=== PATIENT | male | born 1985 | race Caucasian/White ===

== ENCOUNTER 2024-07-05 18:43 | Inpatient (IN) | payer MEDICARE, OTHER, SELFPAY ==
[2024-07-05] VITALS (18 sets, daily range): BP systolic 110–151; BP diastolic 66–99; RESP 15–19
--- NOTE | 2024-07-05 17:04 | ED.GENMED ---
History of Present Illness
General
Chief Complaint: Overdose Unintentional
Source: patient and ambulance crew
Exam Limitations: none
Time Seen by Provider: 07/05/24 17:03
Nursing documentation reviewed up to this point in time: agreed with
History of Present Illness
History of Present Illness:
39-year-old male presents to the emergency department via EMS after heroin overdose. He was given Narcan via EMS. He used 1 bag of heroin, snorted it. He was given 2 mg of Narcan at the house by significant other, and then received 2 mg of Narcan
via EMS.
Past History
Past History
ED Past Medical History: Other (Heroin abuse)
ED Past Surgical History: Other
Social History
Tobacco: Smoker
Alcohol: Other
Drug: Narcotics and Other
Personal: Other
Living: other
Employment: Other
Family History
Family History: Other
Review of Systems
Review of Systems
Allergies reviewed?: Yes
All Other Systems: Not applicable
Constitutional: Reports no symptoms
EENT: Reports no symptoms
Respiratory: Reports trouble breathing
Cardiac: Reports no symptoms
ABD/GI: Reports no symptoms
: Reports no symptoms
Musculoskeletal: Reports no symptoms
Skin: Reports no symptoms
Neurological: Reports no symptoms
Endocrine: Reports no symptoms
Hematologic/Lymphatic: Reports no symptoms
Psychiatric: Reports no symptoms
Phy Exam
Physical Exam
Physical Exam:
Physical Exam
General: Drowsy, but arousable, but then arouses
Neck: supple. no meningeal signs. normal posterior pharynx
Heart: s1/s2 regular rate and rhythm, no murmur. equal radial
pulses.
HEENT: Pupils equal round reactive to light, EOMI
Lungs: no acute respiratory distress. clear bilaterally
Abdomen: normal bowel sounds. not tender. no CVAT
Neuro: Arousable. no focal neurological deficits cranial nerves II through XII intact
Skin: no rash
Psychiatric: well kept. interactive and cooperative
Extremities: no edema. no calf tenderness. negative homans. good distal pulses
Course
Orders/Labs/Results
Orders:
Orders
07/05/24 Dinner
NPO
Allow oral meds: Yes
Allow clear liquids: No
07/05/24 17:00
Portable Chest Xray [CR Chest Portable - 1 View] Urgent
Comment:
Reason For Exam: overdose, low SpO2
Reason Study Needs to be Portable: Patient Unstable
07/05/24 17:03
Restraints - Non Violent As Directed
Justification-Patient:: 2-Protective Intervention
Restraint Type-: Soft Limb-L&R Wrist/4rail
Apply From (date): 07/05/24
Apply from (time): 17:03
Remove (date): 07/06/24
Remove (time): 23:59
07/05/24 17:07
Naloxone [Narcan] 2 mg IV NOW STA
07/05/24 17:09
Complete Blood Count/With Diff Urgent
Comprehensive Metabolic Panel Urgent
07/05/24 17:51
Naloxone [Narcan] 2 mg IV NOW STA
07/05/24 18:00
Naloxone [Narcan] See Protocol IV [id number] PRN
Naloxone [Narcan] 2 mg 0.9% Sodium Chloride 500 ml [Nss] 500 ml IV PER PROTOCOL
Dose for Titration in mg/hr:: 0.25
Titrate to keep:: Resp rate > 9
Frequency of titrations (minutes):: every 10 minute
Increase dose if:: Resp rate </=9 or ETCO2 > 55 mmHg or PaCO2 > 55 mmHg
Increase dose by:: 25% of current dose. (New Dose = current dose x
1.25)
If increased new dose < 0.2 mg/hr, bolus with (mg):: 0.08
If increased new dose 0.2 - 0.39 mg/hr, bolus with: 0.1
(mg)::
If increased new dose 0.4 - 0.59 mg/hr, bolus with: 0.2
(mg)::
If increased new dose 0.6 - 0.79 mg/hr, bolus with: 0.3
(mg)::
If increased new dose >/= 0.8 mg/hr, bolus with (mg):: 0.4
Decrease dose if:: respiratory rate > 10 and COWS 5-24
Decrease dose by:: 25% of current dose. (New Dose = current dose x
0.75)
Stop infusion if:: respiratory rate >/= 10 and COWS >/= 25
Restart infusion:: If resp rate </= 9, restart at 50% of prior infusion
dose
Maximum dose in mg/hr:: 6.25
Begin to taper infusion when:: patient remains at goal for 2 hours
Taper by:: 25% of current dose. (New Dose = current dose x
0.75)
Frequency of taper (minutes) if patient maintains: every 60 minutes
goal::
Turn infusion off when:: dose < 0.04 mg/hr
Capnography/ETCO2 As Directed
Pulse Ox/cont/shift [RESP] Routine
Quantity: 1
Special Instructions: continuous pulse oximetry with audible alarm set at 92%
07/05/24 18:09
Admit/Transfer Patient As Directed
Co-Sign Provider:
Level of Care: Inpatient admission
Assign to:: ICU
Physician / Group: Ada
Diagnosis: opioid overdose
Reason for Hospitalization: opioid overdose
Expected length of stay greater than two midnights?: Yes
ELOS- Estimated Length of Stay in days: 3
I certify the patient meets the requirements for IP care: Yes
PRN Pain Medication Management As Directed
May give lesser potent ordered pain med per pt: Yes
preference::
Protocol:: Medication orders for pain may be administered in a
manner that supports deferring to patient preference
when the pt is:
- Requesting an ordered lesser potent pain medication.
Least to most potent pain medications are defined
as: acetaminophen < NSAID < tramadol < opioids
(morphine, oxycodone, hydromorphone).
- Requesting a lesser dose of the same medication IF
ORDERED.
- Requesting a less intrusive route of administration
if both routes are prescribed by the provider (PO <
IV).
07/05/24 18:19
Code Status As Directed
Resuscitation Status: Full Code
07/05/24 19:32
Fentanyl, Urine Stat
Urine Drug Abuse Screen Stat
Date Specimen was Collected: 07/05/24
Time Specimen was Collected: 18:28
07/05/24 19:45
Bisacodyl [Dulcolax] 10 mg RECTAL [id number] PRN
Dextrose 5%/0.45%Sodchl 1000ML [D5/0.45%NaCl] 1,000 ml IV 100 mls/hr
Docusate W/Senna [Senokot-S] 1 tablet PO BIDPRN PRN
Polyethylene Glycol Powder [Miralax] 17 grams PO DAILYPRN PRN
07/05/24 19:45
Activity As Directed
Activity Level: With Assistance
Capnography/ETCO2 As Directed
Pneumatic Compression Sleeves As Directed
Type: Knee high
Vital Signs As Directed
Frequency: Per unit guidelines
DX Deep Vein Thrombosis Video Routine
07/06/24 06:00
Basic Metabolic Panel IN AM
Complete Blood Count/No Diff IN AM
07/06/24 18:00
Enoxaparin Sodium [Lovenox] 40 mg SC QPM
Abnormal Lab Results
07/05/24
17:09
WBC 11.4 H 10^3/uL
(4.8-10.8)
Abs Immat Gran (auto) 0.1 H 10^3/uL
(0-0.05)
Absolute Neuts (auto) 8.6 H 10^3/uL
(1.4-6.5)
Neutrophils % 75.4 H %
(42.2-75.2)
Lymphocytes % 17.8 L %
(20.5-51.1)
Chloride 115 H mmol/L
(98-107)
Glucose 127 H mg/dl
(70-99)
07/05/24 17:09
07/05/24 17:09
Vital Signs
Initial and Last Documented VS:
Initial Vital Signs
BP
148/95
07/05/24 16:54
Last Documented Vital Signs
Temp Pulse Resp BP Pulse Ox
97.9 F 59 17 110/66 97
07/05/24 20:07 07/05/24 22:15 07/05/24 22:15 07/05/24 22:00 07/05/24 22:15
MDM/Problems Addressed
Differential Diagnosis Includes:
Respiratory failure, opiate overdose
MDM/Problems Addressed:
39-year-old male with opiate overdose, mild improved with Narcan. Stable on 3 L nasal cannula. Admit to ICU for further treatment and stabilization.
*Radiology
Radiology exam reviewed: preliminary read by ED provider (Chest x-ray no acute finding)
*Pulse Oximetry
Patient hypoxic: yes
*[employer] Interpretation
Rate: normal
Interpretation: normal
Heart Rate: 62
Rhythm: sinus
*Critical Care Note
Total Time (30-74mins, 75-104mins- exclusive of procedures): 45
comment:
Critical care statement: A total of 45 minutes of critical care time was provided for this patient. This includes management of unstable vital signs, evaluation of the patient at bedside, reviewing the patient's pertinent medical records, discussion
with consultants, review of old EKGs and review of pertinent medical records. This time with separate from time utilized to perform the aforementioned documented procedures
Patient Management
Social determinants of health affecting care: Living situation
Discussion with other providers: Hospitalist
Escalation/DeEscalation of care consider admission/obs:
Admit indicated
ED Attending Note
-
Portions of this chart may have been created with voice recognition software.� Occasional wrong word or��sound alike� substitutions may have occurred due to the inherent limitations of voice recognition software.
Discharge Plan
Departure
Patient Disposition: Admit
Date of Disposition: 07/05/24
Time of Disposition: 17:57
Admit to: ICU
Presentation/result/management discussed w/ accepting MD/DO: Hospitalist
Patient with high blood pressure during this ER visit?: Yes
Condition: Serious
Discharge Problem:
Overdose opiate, Acute respiratory insufficiency
Interventions
Interventions:
*Risk Screen - Suicide Last Done: 07/05/24 16:55
*General Assessment Last Done: 07/05/24 16:55
*Neglect/Abuse Screening Last Done: 07/05/24 16:55
*ED- Fall Risk Assessment Last Done: 07/05/24 16:55
*ED COVID-19 Vaccine History Last Done: 07/05/24 19:54
*Nursing Disposition Last Done: 07/05/24 19:54
ED- Cardiac Assessment Last Done: 07/05/24 17:23
ED- Neurological Assessment Last Done: 07/05/24 17:23
ED-Psychological Assessment Last Done: 07/05/24 18:08
ED- Pulmonary Assessment Last Done: 07/05/24 17:23
Discharge Date and Time
Discharge Date/Time: 07/05/24 19:55
[2024-07-05] MEDS: NARCAN 2 MG IV ×2 (17:10→17:56)
[2024-07-05 17:19] LABS: % Basophils 0.4 % (0-2); % Eosinophils 0.5 % (0-6); % Immature Granulocytes 0.5 % (0-0.5); % Lymphocytes 17.8 % (20.5-51.1); % Monocytes 5.4 % (1.7-9.3); % Neutrophils 75.4 % (42.2-75.2); Absolute Basophils 0.1 10^3/uL (0-0.2); Absolute Eosinophils 0.1 10^3/uL (0-0.7); Absolute Immature Granulocytes 0.1 10^3/uL (0-0.05); Absolute Monocytes 0.6 10^3/uL (0.1-0.6); Absolute Neutrophils 8.6 10^3/uL (1.4-6.5); Hemoglobin 14.8 g/dL (13.0-18.0); Mean Corp Hgb Conc. 35.2 g/dL (33.0-37.0); Mean Corpuscular Hgb 29.7 pg (27.0-31.0); Mean Corpuscular Volume 84.2 fL (80.0-94.0); Mean Platelet Volume 8.6 fL (7.4-10.4); Nucleated Red Blood Cells % 0 % (-); Platelet Count 274 10^3/uL (130-400); Red Blood Cell Count 4.99 10^6/uL (4.70-6.10); Red Cell Dist. Width 12.2 % (11.5-14.5); White Blood Cell Count 11.4 10^3/uL (4.8-10.8)
[2024-07-05 17:31] LABS: ALT (SGPT) 25 U/L (0-50); AST (SGOT) 21 U/L (17-59); Alkaline Phosphatase 75 U/L (38-126); Blood Urea Nitrogen 18 mg/dl (9-20); Carbon Dioxide 22 mmol/L (22-30); Chloride 115 mmol/L (98-107); Glucose 127 mg/dl (70-99); Potassium 4.4 mmol/L (3.5-5.1); Sodium 145 mmol/L (135-145); Total Bilirubin 0.8 mg/dl (0.2-1.3); Total Protein 6.9 g/dl (6.3-8.2); eGFR > 60.00
--- NOTE | 2024-07-05 17:54 | PHANOTE ---
Addendum entered by Viral Cedillo 07/05/24 18:43:
Called Significant Other x2 times, picked up second time. She was able to confirm most medications, but did not know gabapentin dosing/frequency.
Original Note:
med rec tech(07/05/24)-Patient unable to answer questions, no records in [facility]. Created med list through [facility] information, but unable to confirm the medication list.
--- NOTE | 2024-07-05 18:25 | HPS.HSE ---
Family Physician
-
Family Physician: INTERVIEWE UNKNOWN - PT NOT
Chief Complaint
-
Fentanyl overdose
History of Present Illness
39-year-old male with a past medical history of:
Bipolar disorder
ADHD
Tobacco abuse disorder
Alcohol abuse disorder
Opioid abuse disorder
Medical marijuana use
Who presents with an opioid overdose. Patient currently is unresponsive. History is obtained from discussion with the ER as well as the patient's fianc�. The patient used fentanyl at home which she obtained from the street. EMS came to take him
to the hospital but initially refused. He then apparently used fentanyl again. EMS came again and brought him to the hospital. He received Narcan by his fianc�e as well as in the ER. Patient's fianc� reports that recently he has been drinking
about a 12 pack of beer daily
Medical History
Past Medical History
Past Medical History: Reports Other (Bipolar disorder ADHD Tobacco abuse disorder Alcohol abuse disorder Opioid abuse disorder Medical marijuana use)
Past Surgical History: Reports Other (N/A)
Social History
Tobacco: Smoker
Alcohol: Binge drinker
Drug: Narcotics
Family History
Family History: Not pertinent
Allergies / Home Medications
Allergies reflects when Allergies were last updated in [employer].
Home Medications with original date entered in [employer]
Allergy/Medication List:
Allergies
Allergy/AdvReac Type Severity Reaction Status Date / Time
No Known Allergies Allergy Verified 07/05/24 17:18
Home Medications
aripiprazole 15 mg tablet 15 mg PO DAILY 07/05/24
dextroamphetamine-amphetamine ER 20 mg 24hr capsule,extend release 20 mg PO DAILY 07/05/24
gabapentin 800 mg tablet 800 mg PO TID 07/05/24
lamotrigine 200 mg tablet 200 mg PO DAILY 07/05/24
Review of Systems
-
Unable to obtain full review of systems at this time due to: Acuity
A 12 point ROS was completed and negative except as noted: No
Physical Exam
Vital Signs
Vital Signs
Pulse Resp BP Pulse Ox
63 19 139/89 97
07/05/24 18:15 07/05/24 18:15 07/05/24 18:00 07/05/24 18:15
Physical Exam
General: Other (.)
Laboratory Results
-
07/05/24 17:09
07/05/24 17:09
Laboratory Results
Total Bilirubin 0.8 mg/dl (0.2-1.3) 07/05/24 17:09
AST 21 U/L (17-59) 07/05/24 17:09
ALT 25 U/L (0-50) 07/05/24 17:09
Alkaline Phosphatase 75 U/L (38-126) 07/05/24 17:09
Impression/Plan
-
Gen: NAD, NCAT
Eyes: pinpoint pupils, no scleral icterus.
Neck: supple.
CV: RRR, +S1/S2, no m/r/g.
Resp: CTAB, no rales, wheezes, or rhonchi.
Abd: +BS, soft, NT, ND
Skin: No rashes.
Neuro: Unresponsive to sternal rub
Psych: calm
Acute metabolic encephalopathy due to opioid abuse:
-Pt given Narcan at home and in ER
-given 2mg IV additional narcan ordered by myself
-start Narcan gtt at 0.25mg/hr
-currently protecting airway
-follow EtCO2
Alcohol abuse disorder:
-as per pt's fiance pt has been drinking 12 pack of beer daily for the last few days
-MSAS protocol (thiamine/folate/PRN ativan)
-may need phenobarb or precedex gtt
Other problems:
Tobacco abuse disorder
Medical marijuana use
ADHD
Bipolar d/o
FULL/Lovenox
Total critical care time spent = 47 min
[2024-07-05] MEDS: NARCAN 502 MG IV (18:43)
[2024-07-05 19:50] LABS: Amphetamines Negative (Negative); Barbiturates Negative (Negative); Benzodiazepines Positive (Negative); Buprenorphine Negative (Negative); Cocaine Negative (Negative); Marijuana Positive (Negative); Methadone Negative (Negative); Methamphetamines Negative (Negative); Opiates Negative (Negative); Phencyclidine Negative (Negative); Tricyclic Antidepressants Negative (Negative)
--- NOTE | 2024-07-05 20:00 | PTCARENOTE ---
Received patient awake, oriented to self and time, asking if he was in [facility]. Following commands, denying pain. MSAS 0, COWS 6, titrating narcan drip per protocol. Sinus nas/normal sinus 50s-70s, BP stable, normothermic. Palpable
pedal and radial pulses b/l. 97% on 3 liters, lung sounds clear. Urinal to void. LAC 18 patent, WNL. Right hand 22 PIV inserted, IVF ongoing. Patient intermittently drowsy and lethargic. Hourly rounding and patient safety checks ongoing.
[2024-07-05 20:33] LABS: Fentanyl, Urine Negative (Negative)
[2024-07-05] MEDS: D5/0.45%NACL 1000 IV (20:52)
[2024-07-05 21:00] LABS: INR 0.95; PT 13.2 Sec (11.4-14.6)
[2024-07-05 21:01] LABS: APTT 29.5 Sec (23.4-35.0)
[2024-07-05 21:17] LABS: GGTP 39 U/L (15-73); Magnesium 2.3 mg/dl (1.6-2.3); Phosphorus 3.7 mg/dl (2.5-4.5)
[2024-07-05 21:23] LABS: B-Hydroxybutyrate 0.08 mmol/L (0.02-0.27)
[2024-07-05] MEDS: THIAMINE INJECTION 200 MG IV (23:23)
[2024-07-06] VITALS (14 sets, daily range): BP systolic 119–157; BP diastolic 68–102; RESP 15–19
--- NOTE | 2024-07-06 00:12 | PTCARENOTE ---
Patient assessment unchanged from previous, narcan titration ongoing. Hourly rounding and patient safety checks ongoing.
--- NOTE | 2024-07-06 04:26 | PTCARENOTE ---
Patient more awake, interactive, AAOx3. Patient accidentally removed one IV, refuses to allow RN to place another one. Otherwise patient assessment unchanged from previous, call manzano within reach.
[2024-07-06 04:36] LABS: Hematocrit 38.7 % (39.0-52.0); Hemoglobin 13.5 g/dL (13.0-18.0); Mean Corp Hgb Conc. 34.9 g/dL (33.0-37.0); Mean Corpuscular Hgb 29.7 pg (27.0-31.0); Mean Corpuscular Volume 85.1 fL (80.0-94.0); Mean Platelet Volume 8.7 fL (7.4-10.4); Platelet Count 249 10^3/uL (130-400); Red Blood Cell Count 4.55 10^6/uL (4.70-6.10); Red Cell Dist. Width 12.3 % (11.5-14.5); White Blood Cell Count 10.5 10^3/uL (4.8-10.8)
[2024-07-06 04:56] LABS: Blood Urea Nitrogen 15 mg/dl (9-20); Carbon Dioxide 23 mmol/L (22-30); Chloride 114 mmol/L (98-107); Glucose 96 mg/dl (70-99); Potassium 4.3 mmol/L (3.5-5.1); Sodium 142 mmol/L (135-145); eGFR > 60.00
[2024-07-06 07:13] LABS: Urine Albumin Negative (Neg - Trace); Urine Bilirubin Negative (Negative); Urine Character Clear (Clear); Urine Color Yellow; Urine Glucose Negative (Negative); Urine Ketone Negative (Negative); Urine Leukocyte Negative (Negative); Urine Nitrite Negative (Negative); Urine Occult Blood Negative (Negative); Urine Specific Gravity 1.025 (<1.030); Urine Urobilinogen Negative (Neg - 1+)
[2024-07-06] MEDS: THIAMINE INJECTION 200 MG IV (08:00)
[2024-07-06] MEDS: FOLVITE 1 MG PO (08:01)
[2024-07-06] MEDS: D5/0.45%NACL 1000 IV (08:01)
--- NOTE | 2024-07-06 08:03 | PTCARENOTE ---
received in AM, awake alert and oriented, stated 'I want to get out of here'. patient was informed regarding hospital policy on leaving AMA. stated he wants to be discharged on a regular basis. accepted all due medications. eating breakfast at
present. denies pain/discomfort.
--- NOTE | 2024-07-06 08:12 | CON.INTV ---
Addendum entered and electronically signed by Betsy Garcia MD 07/06/24 12:35:
Please note that patient left AMA shortly after rounds
Addendum entered and electronically signed by Betsy Garcia MD 07/06/24 12:35:
Patient seen and examined independently by myself. Resident note reviewed below. Case discussed on rounds.
Patient is awake and alert, conversing. He admits to fentanyl use. He states he was clean for 5 years, in remission. 'My bad' 'I know what I did'. When asked who facilitated, he did not answer. 'It was my fault'
Patient denies chest pain, shortness of breath, nausea, abdominal pain. Denies any falls. Denies any diarrhea
He denies alcohol use, admits to smoking marijuana on a daily basis, does not take any illicit medications, benzodiazepines. He snorts his fentanyl
Family history unremarkable for lung disease, blood clots
Patient lives at home with his , has 2 birds
He is currently unemployed
He denies any allergies
Review of systems otherwise negative
Physical exam
Vitals are stable, heart rate 40s to 50s, blood pressure 140s/90s, 95% on room air, respiratory rate 19, conversant
Chest exam is clear, no wheeze/crackles/rhonchi
Cardiac exam regular rate rhythm no murmurs rubs gallops abdominal exam soft nontender nondistended extremities no clubbing cyanosis or edema. Multiple tattoos
Data reviewed
Chest x-ray with cardiomegaly, questionable interstitial changes
Talk screen positive for benzodiazepine/marijuana, otherwise normal liver function, creatinine, white count
A/P
Patient appears to be back to his baseline
He was on a Narcan drip, now discontinued
To me patient denies any alcohol use although records suggest 12 beers a day
Moving forward
Continue with supportive care
His mild interstitial changes are noted but his chest exam is clear
Unclear if this was a expiratory film
He also snorts fentanyl therefore is at risk for lung injury process
Recommended abstinence from snorting drugs. Patient denies alcohol use
Continue with thiamine/folate, MSAS
Bradycardia noted but patient is without symptoms.
Will obtain EKG
Further workup per primary service
Reviewed with critical care nursing, respiratory care, pharmacy
Reviewed with primary service
Will follow-up
Original Note:
Consultation
Consultation Request
Date/Time Consultation Requested: 07/05/24 19:45
Date/Time Consultation Performed: 07/06/24 08:30
Requesting Provider: Marko Caballero MD
Performing Provider: Mau Stoll MD ; Betsy Garcia MD
Reason for Consultation: icu mgmt
Medical History
-
Chief Complaint: Drug overdose
History of Present Illness:
39-year-old male with known past medical history of bipolar, ADHD, alcohol abuse disorder, opioid abuse disorder, use of medical marijuana, smoking who was presented unresponsive initially in the ED with suspected opioid overdose. Additionally
patient's parents reports that recently he has been drinking around 12 packs of beer every day.
In the ER urine tox showed + benzo and marijuana. He received Narcan at home and as well as in the ER later started on Narcan gtt.
He was also started on MSAS protocol.
Pmhx: Drug abuse, medical marijuana, alcohol abuse disorder, bipolar, ADHD
PShx: None
Past Medical History
Past Medical History: Other (As above)
Past Surgical History: Other (As above)
Social History
Tobacco: Smoker
Alcohol: Binge Drinker
Drug: Marijuana, Narcotics and IVDA
Family History
Family History: Unable to Obtain
Allergies / Home Medications
Allergies
Allergy/AdvReac Type Severity Reaction Status Date / Time
No Known Allergies Allergy Verified 07/05/24 17:18
Home Medications
�Medication �Instructions �Recorded �Confirmed �Last Taken �Type
aripiprazole 15 mg tablet 15 mg PO DAILY 07/05/24 07/05/24 Unknown History
dextroamphetamine-amphetamine ER 20 mg PO DAILY 07/05/24 07/05/24 Unknown History
20 mg 24hr capsule,extend release
gabapentin 800 mg tablet 800 mg PO TID 07/05/24 Unknown History
lamotrigine 200 mg tablet 200 mg PO DAILY 07/05/24 07/05/24 Unknown History
Review of Systems
-
History Source: Patient
All other systems: Negative unless noted
Vitals / Labs / Diagnostic Testing
Vital Signs
Temp Pulse Resp BP Pulse Ox
98.1 F 65 14 147/100 100
07/06/24 03:20 07/06/24 04:15 07/06/24 04:15 07/06/24 04:00 07/06/24 04:15
Lab Data
07/06/24 04:07
07/06/24 04:07
Laboratory Results
07/05/24
20:42
PT 13.2
INR 0.95
APTT 29.5
Diagnostic Testing:
Physical Exam
-
HEENT: Normocephalic and Moist Mucous Membranes
Cardiovascular: S1/S2 and Regular Rhythm
Respiratory: Clear and Non-Labored Respirations
GI: Soft, Non Distended and Non Tender
Neurology: Awake, Alert and Oriented
Skin: Warm and Dry
General: Comfortable
Assessment
-
39-year-old male presented initially in the OR for suspected opiate overdose.
# Drug overdose
#Acute metabolic encephalopathy secondary to opioid abuse
#Intermittent bradycardia
#Alcohol abuse disorder
#Medical marijuana use
#ADHD
#Bipolar disorder
Plan:
Patient is currently awake and alert and no longer encephalopathic.
Narcan gtt. is off as of 0 400 today.
Even though the family/fianc� reported use of fentanyl the urine tox was positive for benzos.
Currently no signs of withdrawal
EKG showed sinus bradycardia no ST or T wave changes
Echo pending
Patient on [facility] protocol for alcohol abuse disorder
Consult [facility]
Okay to downgrade to telemetry
DVT prophylaxis Lovenox
Data Reviewed
-
EKG: Report reviewed by me
Radiology: Report reviewed by me
Labs: Labs reviewed by me, Discussed with Physician and Discussed with Patient
--- NOTE | 2024-07-06 08:19 | W.PN.HOSP.TC ---
Today's Communication/Plan
-
see plan
Assessment / Plan
Assessment / Plan
Gen: NAD, NCAT, awake and alert x 3
Eyes: pinpoint pupils, no scleral icterus.
Neck: supple.
CV: nas, RRR, +S1/S2, no m/r/g.
Resp: CTAB, no rales, wheezes, or rhonchi.
Abd: +BS, soft, NT, ND
Skin: No rashes.
Neuro: CN2-12 intact, nonfocal
Psych: excited
Acute metabolic encephalopathy due to opioid abuse:
-Patient and patient's fianc� report that he took fentanyl. Interestingly urine drug screen was negative for fentanyl but positive for benzodiazepines.
-Pt given Narcan at home and in ER and then started on a narcan gtt which was stopped around 0400
-not awake and alert, no longer encephalopathic
Intermittent bradycardia:
-Sinus bradycardia on the monitor
-ECG 07/05/24 NSR with sinus arrhythmia, normal axis and intervals, no acute ST or T wave abnormalities
-check echo
Alcohol abuse disorder:
-as per pt's fiance pt had been drinking 12 packs of beer daily for the last few days [employer]
-MSAS protocol (thiamine/folate/PRN ativan)
Other problems:
Tobacco abuse disorder
Medical marijuana use
ADHD
Bipolar d/o
FULL/Lovenox
Downgrade to tele. Monitor for 24 hours.
Anticipated Discharge: Within 24 hours
Subjective/Interval History
-
Date of Service: July 06, 2024
Objective Data
-
Labs:
Laboratory Results
07/05/24 07/06/24
20:42 04:07
WBC 10.5
Hgb 13.5
Hct 38.7 L
Plt Count 249
PT 13.2
INR 0.95
APTT 29.5
Sodium 142
Potassium 4.3
Chloride 114 H
Carbon Dioxide 23
BUN 15
Creatinine 0.8
Glucose 96
Calcium 9.0
Vital Signs:
Vital Signs
Temp Pulse Resp BP Pulse Ox
98.1 F 65 14 147/100 100
07/06/24 03:20 07/06/24 04:15 07/06/24 04:15 07/06/24 04:00 07/06/24 04:15
I&O
07/05/24 07/06/24 07/07/24
06:59 06:59 06:59
Intake Total 1033.8 / 1133.8 300 / 300
Output Total 650 / 650
Balance 383.8 / 483.8 300 / 300
--- NOTE | 2024-07-06 08:43 | PTCARENOTE ---
transfer to telemetry orders noted. patient bradycardic in 50s high 40s. stat EKG completed, MD notified. patient is drowsy, but arousable. able to follow commands but falls back to sleep.
--- NOTE | 2024-07-06 09:30 | PTCARENOTE ---
left AMA after signing. IV taken out. all belongings picked up by the patient
--- NOTE | 2024-07-06 14:44 | W.DCSUMMARY ---
Discharge Summary
Discharge Data
Date of Admission: 07/05/24
Date of Discharge: 07/06/24
-
Pending Results: No
Hospital Course
Primary diagnoses:
Acute metabolic encephalopathy due to (presumed) opioid abuse
Alcohol abuse disorder
Intermittent sinus bradycardia
Secondary diagnoses:
Tobacco abuse disorder
Medical marijuana use
Attention deficit hyperactivity disorder
Bipolar disorder
Consultants:
Critical care
Imaging:
CXR: Low lung volumes without focal airspace disease.
31-year-old male who presented yesterday evening with change in mental status as outlined in the H&P done on admission. Hospital course by problem was:
Acute metabolic encephalopathy due to opioid abuse: The patient and patient's fianc� reported that he took fentanyl. Interestingly urine drug screen was negative for fentanyl but positive for benzodiazepines. The patient was given Narcan at home
and in ER and then started on a narcan gtt which was stopped around 0400 on 07/06/24. The patient's acute metabolic encephalopathy resolved. He was awake and alert on the morning of July 06, 2024.
Intermittent sinus bradycardia: Patient had intermittent sinus bradycardia on telemetry. ECG 07/05/24 NSR with sinus arrhythmia, normal axis and intervals, no acute ST or T wave abnormalities. An echocardiogram is ordered
Alcohol abuse disorder: As per the patient's fiance the patient had been drinking 12 packs of beer daily for the last few days prior to admission. The patient was placed on the MSAS protocol (thiamine/folate/PRN ativan).
The patient left AGAINST MEDICAL ADVICE on the morning of July 06, 2024.
Discharge Plan
-
Patient Disposition: Against Medical Advice
Prescriptions:
No Action
lamotrigine 200 mg Tablet
200 mg PO DAILY
gabapentin 800 mg Tablet
800 mg PO TID
dextroamphetamine-amphetamine 20 mg capsule,extended release 24hr
20 mg PO DAILY
aripiprazole 15 mg Tablet
15 mg PO DAILY
Discharge Date and Time
Discharge Date/Time: 07/06/24 10:01
Print Language: INDIAN
== END 2024-07-06 10:01 | disposition left against medical advice (07) | DRG 92 ==
LOC: ICU 18:43
PROVIDERS: ADMITTING PHYSICIAN Internal Medicine; CONSULT PHYSICIAN Internal Medicine Critical Care Medicine; EMERGENCY PHYSICIAN Emergency Medicine
DX: G92.8 Other toxic encephalopathy (principal); F31.89 Other bipolar disorder; F10.10 Alcohol abuse, uncomplicated; F17.200 Nicotine dependence, unspecified, uncomplicated; F90.9 Attention-deficit hyperactivity disorder, unspecified type; T40.411A Poisoning by fentanyl or fentanyl analogs, accidental (unintentional), initial encounter; Z53.29 Procedure and treatment not carried out because of patient's decision for other reasons
CPT/HCPCS: 71045; 80048; 80053; 80306; 80307; 81003; 82010; 82077; 82977; 83735; 84100; 85025; 85027; 85610; 85730; 87070; 93005; 96374; 96375; 99291